=== PATIENT | male | born 1970 | race Caucasian/White ===

== ENCOUNTER → 2017-08-16 06:54 | Day surgery (SDC) | payer OTHER, SELFPAY ==
[2017-08-13 13:40] VITALS: BMI 33.7
[2017-08-16] VITALS (8 sets, daily range): BP systolic 123–157; BP diastolic 81–100; PULSE 84–99; RESP 10–16; TEMP 36.1–37.1; O2SAT 97–98; BMI 33.7
[2017-08-16] MEDS: LACTATED RINGERS 1,000 ML 42 ML IV (07:45)
[2017-08-16] MEDS: CEFAZOLIN 2 GM/100 ML FROZ.PIGGY IV (08:09)
[2017-08-16] MEDS: BUPIVACAINE 0.25% (PF) 30 ML VIAL 10 ML INJ (09:10)
--- NOTE | 2017-08-16 09:28 | PM.OP.1 ---
Operative Date/Time/Diagnoses - Date of procedure: 08/16/17 Time of procedure: 08:02 Pre-op diagnosis: Right medial meniscus tear Post-op diagnosis: other (Right medial meniscus tear. Right medial femoral condyle cartilage lesion. Right trochlear cartilage lesion) Procedure & Clinicians Procedure: Left knee arthroscopy with medial meniscus debridement. 05/24/1980 Right knee arthroscopic chondroplasty of the trochlea and medial femoral condyle. [id number] Indications: This is a 46-year-old male who has had 6 months of right knee pain and recurrent effusions his pain is mostly medial. He had medial joint line tenderness and pain with Ja as well as a popping sensation. MRI showed a degenerative type meniscal tear. Risks benefits alternatives of surgery discussed the risks including pain bleeding infection damage to nearby structures lack of symptom relief need for further procedures and anesthetic complications. He is also at risk for a DVT and PE. The goal of the surgery would be to improve his mechanical symptoms and any pain from the missing meniscus tear. He was found to have some arthritic changes and I discussed within the arthritic pain would not be improved with the surgery. He signed a written consent Surgeon: Jairon Tomas It Systems Analyst Consultant: Monet Bingham Anesthesia Type: General and Local Operative Notes Findings: Examination under anesthesia: Range of motion 0-135. Stable to varus and valgus stressing at 0 and 30??. Stable dial at 30 and 90??. 1A Ephraim's. Pivot shift negative. Anterior and posterior drawer normal Diagnostic arthroscopy: Patella had grade 1 changes Trochlea had a large full-thickness lesion measuring 25 mm long and 30 mm wide it was in a luis shape and took up nearly the entire articular surface Medial femoral condyle had a 5 mm by 10 mm partial-thickness lesion over the medial aspect. There is also a focal full-thickness lesion measuring less than 5 mm in each dimension Medial meniscus had a large complex tear which surfaced inferiorly the inferior portion of the meniscus was removed and a smooth transition was created Medial tibial plateau had grade 1 changes with focal grade 2 changes Lateral meniscus was intact Lateral tibia had grade 1 changes Lateral femoral condyle was intact ACL and PCL were intact Closure Type: primary Implants & Drains: None Estimated Blood Loss (mL): 5 Blood products transfused: none Tourniquet time (min): 36 Procedure in detail: The patient was met in the preop hold area the day of the procedure the operative extremity was signed consent was verified he desired to proceed. He was brought to the operating room and surrendered to anesthesia. Once general anesthesia had been obtained he was placed in the supine position all bony prominences were well padded. Examination under anesthesia was performed. He was then prepped and draped in the standard sterile fashion. A surgical time-out was held where we confirmed the patient's procedure identity allergies antibiotics images and all were in agreement. A standard diagnostic arthroscopy of the knee was performed. I utilized anterolateral and anteromedial portals. The anteromedial portal was created under direct visualization utilizing a spinal needle. I started in the medial liang joint and utilizing a straight biter and a sucker shaver I debrided the inferior leaflet of the oblique tear of the medial meniscus. I also debrided the free border of the superior leaflet to make for a smooth stable transition. I debrided a small area of the cartilage lesion seen on the medial femoral condyle back to a stable base. I then proceeded into the patellofemoral joint and debrided the fat pad as well as the ligamentum mucosum for better visualization. Utilizing the sucker shaver I debrided the border of the trochlear cartilage lesion down to a stable base. I then measured this and took a good arthroscopic images for documentation. All fluid was then removed from the knee and I closed the incisions with buried Biosyn. Steri-Strips and a sterile dressing was applied and he was transferred to the recovery room. Complications: none Condition: stable Disposition: PACU Plan for aftercare: DVT prophylaxis is SCDs while in hospital. Manuelito hose for 2 weeks. Aspirin daily. Early frequent ambulation. He is full weight-bearing with no impact activities and no range of motion limitations.
[2017-08-16] MEDS: fentaNYL 100 MCG/2 ML INJ 50 MCG IV (09:44)
--- NOTE | 2017-08-16 09:45 | PM.PREOP ---
Pre-operative Note Interval Note Changes to the H&P: none Pre-op Check: History & Physical Reviewed and Exam Performed
[2017-08-16] MEDS: OXYCODONE/ACETAMINOPHEN 5/325 TABLET 1 TAB PO (09:53)
== END | disposition home or self-care (01) ==
PROVIDERS: Visit Provider Orthopaedic Surgery
PROC: (CPT 29870; principal; 2017-08-16 07:45)
DX: S83.241A Other tear of medial meniscus, current injury, right knee, initial encounter (principal)
CPT/HCPCS: 29881; J0690; J1100; J1885; J2250; J2405; J2704; J3010

== ENCOUNTER → 2021-01-26 11:06 | Outpatient (CLI) | payer OTHER, SELFPAY ==
--- NOTE | 2021-01-26 | DI.MRI.S_ITS ---
PROCEDURE: MR CERVICAL SPINE WO CON INDICATIONS: Other spondylosis with radiculopathy, cervical reg TECHNIQUE: The patient terminated this examination early, before can be completed. Following imaging sequences were obtained: T2 a weighted axial, T2 weighted sagittal, T1 weighted sagittal COMPARISON: None. FINDINGS: Image quality: This examination is limited by involuntary motion artifact. Alignment and Curvature: There is straightening of the normal cervical lordosis. No focal AP alignment abnormality is seen. Bone Marrow: Marrow demonstrates normal overall signal. Spinal Cord: Visualized spinal cord has normal size and signal. No cerebellar tonsillar herniation. Paraspinous Soft Tissues: No paravertebral masses. Prevertebral soft tissues are normal in thickness. C2-C3: The disc height is well-preserved. Loss of disc signal is seen at this level. A mild degree of generalized disc osteophyte complex is seen. There is mild left-sided neural foraminal narrowing and no right-sided neural foraminal narrowing. Minimal central C3-C4: The disc height is well-preserved. Loss of disc signal is seen at this level. A mild degree of generalized disc osteophyte complex is seen. Mild to moderate facet hypertrophy is seen. There is moderate left-sided and no right-sided neural foraminal narrowing seen. Minimal central canal narrowing is seen. C4-C5: The disc height is well-preserved. Loss of disc signal is seen at this level. A mild degree of generalized disc osteophyte complex is seen. Hhyx-ah-ytrfvfnx facet hypertrophy can be seen. Moderate bilateral neural foraminal narrowing is seen. Mild central canal narrowing is seen. C5-C6: Oppu-vc-ejmgfvix loss of disc height and disc signal can be seen. Moderate disc osteophyte complex is seen, with a central/right disc osteophyte protrusion. Moderate facet joint hypertrophy is seen. Moderate to severe bilateral neural foraminal narrowing can be seen. Moderate central canal narrowing is seen. There is associated mass effect upon the ventral spinal cord. C6-C7: The disc height is well-preserved. Loss of disc signal is seen at this level. A mild degree of generalized disc osteophyte complex is seen. Mild facet joint hypertrophy is seen. Moderate bilateral neural foraminal narrowing is seen. Mild central canal narrowing is seen. C7-T1: The disc height and disc signal are relatively well preserved. Mild to moderate disc osteophyte complex is seen, which is eccentric to the left. There is moderate left-sided and tukh-wk-kiramcrb right-sided neural foraminal narrowing seen. No significant central canal narrowing is seen. IMPRESSION: Multiple levels of cervical spine degenerative change are seen, which are worst at the C5-C6 level. Limited study, which was terminated early by the patient. Dictated by: Phill Rogel M.D. on 01/26/2021 at 10:55 Approved by: Phill Rogel M.D. on 01/26/2021 at 10:59
== END ==
PROVIDERS: PCP Family Medicine; Referring Provider Physical Medicine & Rehabilitation Pain Medicine; Visit Provider Physical Medicine & Rehabilitation Pain Medicine
DX: M47.22 Other spondylosis with radiculopathy, cervical region (principal); M50.322 Other cervical disc degeneration at C5-C6 level; M48.02 Spinal stenosis, cervical region
CPT/HCPCS: 72141

== ENCOUNTER → 2021-02-20 09:23 | Outpatient (CLI) | payer OTHER, SELFPAY ==
[2021-02-20 14:46] LABS: COVID19 -Nasal RAPID Negative (Negative)
== END ==
PROVIDERS: PCP Family Medicine; Visit Provider Physician Assistant
DX: Z20.822 Contact with and (suspected) exposure to COVID-19 (principal); Z01.812 Encounter for preprocedural laboratory examination
CPT/HCPCS: 87635

== ENCOUNTER 2021-02-21 13:26 | Day surgery (SDC) | payer OTHER, SELFPAY ==
--- NOTE | 2021-02-21 | PATH_ITS ---
[facility] Accession Number: [id number] . 01 Material submitted: . PART A: stomach - ANTRUM BIOPSY PART B: gastrointestinal site - GASTRIC POLYP PART C: colon - RECTAL SIGMOID COLON POLYP . 02 Diagnosis: A. Antrum Biopsy: Portion of gastric antral and body-type mucosa with mild chronic inflammation. Negative for Helicobacter organisms by immunohistochemistry. Negative for intestinal metaplasia. Negative for dysplasia or malignancy. . B. Gastric Polyp: Fundic gland polyp. No evidence of Helicobacter organisms on H/E stain. Negative for intestinal metaplasia. Negative for dysplasia and malignancy. . C. Rectosigmoid Colon Polyp: Hyperplastic polyp. [facility] 02/24/2021 1344 Local . 02 Electronically signed: . Joelle Be MD, Pathologist NPI- [id number] . 01 Gross description: . Part A: ANTRUM BIOPSY: Received in formalin is 1 fragment(s) of mathur, soft tissue measuring 0.4 x 0.3 x 0.3 cm submitted entirely in 1 cassette(s) Part B: GASTRIC POLYP: Received in formalin is 1 fragment(s) of mathur, soft tissue measuring 0.2 x 0.1 x 0.1 cm submitted entirely in 1 cassette(s) Part C: RECTAL SIGMOID COLON POLYP: Received in formalin is 1 fragment(s) of mathur, soft tissue measuring 0.4 x 0.4 x 0.3 cm submitted entirely in 1 cassette(s) /[facility] 02/22/2021 1423 Local . 02 Microscopic: . A. An immunohistochemical stain was performed to evaluate for Helicobacter organisms and is negative. The control stain showed appropriate reactivity. . * This test was developed and its performance characteristics determined by [facility]. It has not been cleared or approved by the U.S. Food and Drug Administration. The FDA has determined that such clearance or approval is not necessary. This test is used for clinical purposes. It should not be regarded as investigational or for research. . 02 Pathologist provided ICD-10: Z01.818, R19.8, R10.13, K63.5 . 02 CPT . 660264, 278991, 207853, [id number] Performed at: 01 [facility] [address] [id number] MD George Hernandez MD Phone: [phone] Performed at: 02 [facility] [address] [place] [id number] MD Delia Forbes MD Phone: [phone]
[2021-02-21 13:46] VITALS: BP 168/102; PULSE 62; RESP 20; TEMP 36.2; O2SAT 98; BMI 32.5
[2021-02-21] MEDS: SODIUM CHLORIDE 0.9% 1,000 ML 84 ML IV (13:59)
--- NOTE | 2021-02-21 14:10 | PM.HP.1 ---
History of Present Illness History of Present Illness Date Patient Seen: 02/21/21 Time Patient Seen: 14:10 Chief complaint: SDC Narrative: I reviewed Dr. Hummel's note. No significant changes. Patient History Medical History Anxiety about health Arthritis Depression Elevated blood pressure reading Fibromyalgia GERD (gastroesophageal reflux disease) Hemochromatosis Hypercholesterolemia IBS (irritable bowel syndrome) Sleep apnea Surgical History History of photorefractive keratectomy (PRK) S/P left knee arthroscopy Family & Social History Social History: household members spouse Tobacco & Substance use: Tobacco type cigarettes Smoking Status Former smoker alcohol intake current alcohol intake frequency 3 or more drinks per day Substance Use Type marijuana Meds Home Medications and Allergies Home Medications Medication Instructions Recorded Confirmed Type fluticasone propionate 50 1 spray INTRANASAL PRN PRN 08/13/17 02/21/21 History mcg/actuation nasal spray,suspension omeprazole 40 mg capsule,delayed 40 mg PO PRN PRN 08/13/17 02/21/21 History release propranolol 40 mg tablet 40 mg PO BID PRN 02/20/21 02/21/21 History sildenafil 50 mg tablet (Viagra) 50 mg PO PRN 02/21/21 History telmisartan 40 mg tablet (Micardis) 40 mg PO DAILY 02/21/21 02/21/21 History Allergies Allergy/AdvReac Type Severity Reaction Status Date / Time ibuprofen Allergy Hives Verified 08/16/17 07:58 Review of Systems Review of Systems ROS: Yes All systems reviewed with the patient and are negative except as otherwise documented Exam Vital Signs (past 8 hours): - 02/21/21 13:46 Temperature 97.1 F L Pulse Rate 62 Respiratory Rate 20 Blood Pressure 168/102 H Pulse Oximetry 98 Oxygen Delivery Method Room Air Const General: cooperative and comfortable Orientation: alert HENMT Head: normocephalic Ears: external ears normal Nose: external nose normal Face and sinus: normal facial exam Eyes General: appearance normal, both eyes and all related structures Neck Neck: normal visual inspection Chest Chest: normal inspection of the chest Resp Effort & Inspection: normal respiratory effort Cardio Rate: regular rate GI Inspection: normal to inspection Skin General: no rashes or lesions noted and No jaundice Neuro General: patient alert and moves all extremities Cognition: normal cognition Speech: speech normal Extrem General: no pedal edema Psych Appearance: grossly normal Assessment & Plan Assessment & Plan narrative: This is a 50-year-old male with 10+ years of intermittent reflux. In recent times he has had breakthrough symptoms couple of times per week in spite of daily omeprazole. He is also indicated for colon cancer screening. EGD and colonoscopy. Therefore plan for today. Time Spent With Patient Critical Care time: I spent a total of [] minutes of critical care time on this patient's care today; this time is exclusive of procedural time.
--- NOTE | 2021-02-21 14:13 | PM.PREOP ---
Pre-operative Note COVID-19 COVID-19 status: Negative Result date/Date tested (Pos, Neg/Pending): 02/20/21 Interval Note History & Physical reviewed/Exam performed by Physician: Yes Changes to H&P: No ASA Class (for procedural sedation): II
--- NOTE | 2021-02-21 14:45 | PM.OP.EC ---
Operative Date/Time/Diagnoses Date of procedure: 02/21/21 Time of procedure: 14:45 Pre-op diagnosis: Refractory GERD indicated for colon cancer screening Post-op diagnosis: same Procedure & Clinicians Study performed: Esophagogastroduodenoscopy with biopsies and colonoscopy with hot snare polypectomy Same procedure as scheduled: Yes Indications: Refractory GERD indicated for colon cancer screening Surgeon: Agus Meléndez Procedure Notes SCOAP/Timeout: Done Procedure in detail: After the risks and benefits were explained, written and verbal informed consent was obtained. The patient was brought into the procedure room and placed into the left lateral decubitus position. Please see nurse accounts administrator notes for sedation details. The scope was introduced into the mouth through the bite block and advanced under direct visualization to the 2nd portion of the duodenum. The scope was slowly withdrawn carefully examining the mucosa for any defects or lesions. Retroflexed views were accomplished in the stomach. The stomach was decompressed, the scope was then removed from the patient who tolerated the procedure well. The patient was then turned around a digital rectal examination accomplished no significant pathology appreciated. The scope was introduced into the rectum and advanced to the cecum as identified by the appendiceal orifice and ileocecal valve. Scope was slowly withdrawn to carefully examine the mucosa for any defects or lesions. Multiple direct views were made through the dentate line for exclusion of pathology the colon was decompressed the scope removed from the patient who tolerated the procedure well. Bowel prep adequate Adult colonoscope Scope withdrawal time: 11 minutes Sedation minutes: 24 Complications: none Impression: 1. Duodenum: This was visually normal from the bulb through the 2nd portion. 2. Stomach: There was some patchy erythema and subtle erosive change scattered throughout the antrum. These areas were biopsied for histopathologic analysis and exclusion of H pylori. Otherwise retroflexed views of the LES were unremarkable. 3. Esophagus: The squamocolumnar junction correlated with the top of the gastric folds. The GEJ was at approximately 41 cm from the incisors. There was no evidence of any active erosive esophagitis no stricture ring no suggestion of Garcia's. The remainder of the esophagus was unremarkable. 4. Colon: The there was some scant scattered diverticulosis in the sigmoid. In the rectosigmoid and through there was a 5-6 mm sessile polyp removed with hot snare. I did not appreciate any other mucosal pathology throughout. There was however a submucosal lesion in the distal rectum that appeared to be measure up to about 8 mm in maximum dimension. It was slightly asymmetric in shape. Under the tip of the closed snare and it felt reasonably soft but did not demonstrate totally classic pillowing that we would expect to see with pure lipoma. Endoscopic diagnosis 1. Erosive gastropathy 2. Otherwise visually unremarkable EGD 3. Colon polyp 4. Scant diverticulosis 5. 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 Await histopathology 2. If the polyp has returned with adenomatous features, repeat colonoscopy will be suggested for 5 years time. 3. Continue anti-reflux therapy. If there are persistent symptoms of reflux then 24 hour esophageal pH testing with impedance may be appropriate. 4. We will make arrangements for a rectal endoscopic ultrasound to confirm the presence of a benign lipoma in the rectum. Disposition: PACU
[2021-02-21 14:47] VITALS: BP 117/80; PULSE 59; RESP 17; TEMP 36.7; O2SAT 95
[2021-02-21 14:52] VITALS: BP 121/88; PULSE 59; RESP 13; O2SAT 94
[2021-02-21 14:57] VITALS: BP 123/84; PULSE 66; RESP 16; O2SAT 97
--- NOTE | 2021-02-21 14:58 | SUR.PHASEI ---
Patient sitting up, drinking liquids without difficulty. Dr Meléndez at bedside.
== END 2021-02-21 15:36 | disposition home or self-care (01) ==
PROVIDERS: PCP Family Medicine; Referring Provider Internal Medicine Gastroenterology; Visit Provider Internal Medicine Gastroenterology
PROC: 0DJ08ZZ Inspection of Upper Intestinal Tract, Via Natural or Artificial Opening Endoscopic (ICD-10-PCS; CPT 43235; principal; 2021-02-21 14:30)
PROC: 0DJD8ZZ Inspection of Lower Intestinal Tract, Via Natural or Artificial Opening Endoscopic (ICD-10-PCS; CPT 45378; 2021-02-21 14:30)
DX: Z12.11 Encounter for screening for malignant neoplasm of colon (principal); K21.9 Gastro-esophageal reflux disease without esophagitis; K31.9 Disease of stomach and duodenum, unspecified; K57.30 Diverticulosis of large intestine without perforation or abscess without bleeding; K29.50 Unspecified chronic gastritis without bleeding; K62.1 Rectal polyp; K31.7 Polyp of stomach and duodenum
CPT/HCPCS: 45385; 43239; J2704

== ENCOUNTER → 2024-06-04 09:59 | Outpatient (CLI) | payer OTHER, SELFPAY ==
--- NOTE | 2024-06-04 10:02 | EKG_ITS ---
[address] [address] Test Date: 2024-06-04 Pat Name: Bandar Frausto Department: [facility] Room: Gender: Male It Desktop Support Technician: JUDY : 1970 Requested By: Order Number: [id number] Reading MD: Rufus Joyce MD Measurements Intervals [place] Rate: 64 P: 16 UT: 158 QRS: 35 QRSD: 102 T: 16 QT: 392 QTc: 404 Interpretive Statements Normal sinus rhythm Electronically Signed On 06-04-2024 14:10:10 PST by Rufus Joyce MD
== END ==
PROVIDERS: PCP Family Medicine; Referring Provider Chiropractor; Visit Provider Chiropractor
DX: J40 Bronchitis, not specified as acute or chronic (principal); I49.8 Other specified cardiac arrhythmias; K73.9 Chronic hepatitis, unspecified
CPT/HCPCS: 93005; 93010; 94060